=== PATIENT | female | born 1955 | race Caucasian/White ===

== ENCOUNTER 2019-01-24 05:37 | Observation (INO) | payer BC ==
[~2019-01-24 05:37] MED LIST: ACETAMINOPHEN 500 MG TAB PO
[2019-01-24] MEDS: LACTATED RINGER'S 1,000 ML IV ×3 (06:22→18:15)
[2019-01-24] MEDS: ACETAMINOPHEN 1000MG/100ML IV 100 ML IVPB (06:22)
[2019-01-24] MEDS: DEXAMETHASONE 4 MG/ML 1 ML INJ IV (06:22)
[2019-01-24] MEDS ORDERED: TRANEXAMIC ACID 1GM/100ML(PMX) 200 ML (07:04)
[2019-01-24] MEDS ORDERED: POLYMYXIN B 500000 UNIT INJ (07:04)
[2019-01-24] MEDS ORDERED: PROPOFOL 20 ML (07:29)
[2019-01-24] MEDS ORDERED: MIDAZOLAM 1 MG/ML 2 ML INJ (07:29)
[2019-01-24] MEDS ORDERED: ETOMIDATE 20 MG INJ (07:29)
[2019-01-24] MEDS ORDERED: LIDOCAINE 1% (MDV) 20 ML INJ (07:30)
[2019-01-24] MEDS ORDERED: HYDROmorphONE 1 MG/5 ML IV SYRINGE IV ×3 (07:30)
[2019-01-24] MEDS ORDERED: FENTAnyl 50 MCG/ML VIAL (07:30)
[2019-01-24] MEDS: CEFAZOLIN 2 GM/50 ML (PMX) 50 ML IVPB ×3 (07:45→18:14)
[2019-01-24] MEDS ORDERED: CEFAZOLIN 1 GM INJ (07:54)
[2019-01-24] MEDS ORDERED: DEXAMETHASONE 4 MG/ML 5 ML INJ (07:54)
[2019-01-24] MEDS ORDERED: ONDANSETRON 4 MG INJ (07:54)
[2019-01-24] MEDS: BACITRACIN 50000 UNITS INJ IRR (08:14)
[2019-01-24] MEDS: POLYMYXIN B 500000 UNIT INJ IRR (08:14)
[2019-01-24] MEDS ORDERED: ROPIVACAINE 0.5 % 30 ML VIAL (08:58)
[2019-01-24] MEDS: TRANEXAMIC ACID 1GM/100ML(PMX) 100 ML PRE-OP X1 IVPB (09:00)
[2019-01-24] MEDS ORDERED: EPHEDrine 25 MG/5 ML SYG (09:02)
[2019-01-24] MEDS ORDERED: PHENYLephrine (100 MCG/ML) 10ML SYG (09:02)
[2019-01-24] MEDS ORDERED: MAGNESIUM HYDROXIDE 30ML CUP PO (09:30)
[2019-01-24] MEDS ORDERED: NACL 0.9% 3 ML SYG IV (09:30)
[2019-01-24] MEDS ORDERED: NALOXONE (0.4 MG/ML) INJ IV (09:30)
[2019-01-24] MEDS: TRANEXAMIC ACID 1GM/100ML(PMX) 100 ML INTRA-OP X1 IVPB (10:00)
[2019-01-24] MEDS: KETOROLAC 15 MG INJ IV (12:42)
[2019-01-24] MEDS: GABAPENTIN 100 MG CAP PO ×2 (13:30→21:55)
[2019-01-24] MEDS: oxyCODONE 5 MG TAB PO ×3 (13:34→21:55)
[2019-01-25 05:28] LABS: ADD MAN DIFF? NO
[2019-01-25 05:29] LABS: BASOPHILS % 0.1 % (0.0-2.0); EOSINOPHILS % 0.1 % (0.0-7.0); HEMATOCRIT 30.2 % (37.0-47.0); HEMOGLOBIN 9.9 g/dl (12.0-16.0); LYMPHOCYTES # 1.5 10^3/ul (0.8-2.9); LYMPHOCYTES % 13.8 % (15.0-51.0); MEAN CORPUSCULAR HEMOGLOBIN 29.6 pg (29.0-33.0); MEAN CORPUSCULAR HGB CONC 32.8 g/dl (32.0-37.0); MEAN CORPUSCULAR VOLUME 90.4 fl (82.0-101.0); MONOCYTE # 0.7 10^3/ul (0.3-0.9); NEUTROPHIL # 8.6 10^3/ul (1.6-7.5); NEUTROPHILS % 79.6 % (39.0-77.0); PLATELET COUNT 158 10^3/UL (140-415); RED BLOOD COUNT 3.34 10^6/ul (4.20-5.40); RED CELL DISTRIBUTION WIDTH 12.7 % (11.5-14.5)
[2019-01-25 05:29] LABS: WHITE BLOOD COUNT 10.8 10^3/ul (4.8-10.8)
[2019-01-25 06:10] LABS: ANION GAP 5 (5-13); BLOOD UREA NITROGEN 23 mg/dl (7-20); CALCIUM 8.6 mg/dl (8.4-10.2); CARBON DIOXIDE 27 mmol/L (21-31); CHLORIDE 107 mmol/L (97-110); CREATININE 0.68 mg/dl (0.44-1.00); Estimated GFR > 60 mL/min (>60); GLUCOSE 142 mg/dl (70-220); POTASSIUM 4.5 mmol/L (3.5-5.1); SODIUM 139 mmol/L (135-144)
[2019-01-25] MEDS ORDERED: ONDANSETRON 4 MG INJ IV (09:30)
[2019-01-25] MEDS: GABAPENTIN 100 MG CAP PO ×2 (10:07→13:24)
[2019-01-25] MEDS: CELECOXIB 100 MG CAP PO (10:08)
[2019-01-25] MEDS: LACTATED RINGER'S 1,000 ML IV (10:08)
[2019-01-25] MEDS: DOCUSATE SODIUM 100 MG CAP PO (10:08)
[2019-01-25] MEDS: ASPIRIN (EC) 81 MG TAB PO (10:08)
[2019-01-25] MEDS: oxyCODONE 5 MG TAB PO ×2 (10:13→14:15)
[2019-01-26] MEDS ORDERED: PANTOPRAZOLE (EC) 40 MG TAB PO (06:00)
== END 2019-01-25 16:30 | disposition home health service (06) ==
LOC: SDS 05:37 → REC 09:39 → MS1 10:35
DX: M17.11 Unilateral primary osteoarthritis, right knee (principal); G89.29 Other chronic pain; M54.5 Low back pain; E66.9 Obesity, unspecified; Z68.33 Body mass index [BMI] 33.0-33.9, adult
CPT/HCPCS: 27447; 73560; 80048; 85025; 86850; 86900; 86901; 87081; 88304; 88311; 97110; 97116; 97161; 97530